=== PATIENT | male | born 1955 | race African-American/Black ===

== ENCOUNTER 2016-09-09 11:20 | Observation (INO) | payer OTHER ==
--- NOTE | ~2016-09-09 | OP ---
Record Of Operation [facility] [address] [place]. [address] NAME: SELENE KINSEY : 53 STATUS : ADM Rusty PAT#: [id number] AGE: 61 ADM/REG DATE : 09/09/16 MR#: [id number] REPORT SERV DATE: 09/10/16 DICTATED BY: GAGE HYMAN DATE: 09/10/16 REPORT STATUS : Draft TRANSCRIBED BY: MODL DATE: 09/10/16 DATE OF PROCEDURE: 09/10/2016 TITLE OF OPERATION: Cystourethroscopy with urethral dilation and Bowman catheter placement. PREOPERATIVE DIAGNOSES: 1. Gross hematuria. 2. History of prostate cancer. 3. Urinary retention. POSTOPERATIVE DIAGNOSES: 1. Urethral false passage. 2. Gross hematuria. 3. Urinary retention. 4. Urethral stricture. INDICATIONS: The patient is a 61-year-old male with history of low-risk prostate cancer. He underwent a radical retropubic prostatectomy at the [facility] in [place]. He has had issues with what was initially described as a bladder neck contracture, which has been managed with dilations and resections. He had presented last night with urinary retention. He did void in the ER with hematuria, therefore, taken to the OR today for interrogation and possible treatment. ANESTHESIA: General. COMPLICATIONS: None. IMPLANTS: 20-Beninese Bowman catheter. SPECIMENS: None. NARRATIVE: The patient was brought to the operating room, identified by his wristband. General anesthesia was induced and Ancef was given for preoperative antibiotics. He was placed in the dorsal position, prepped, and draped in sterile fashion. A cystoscope was placed into his urethra and . The external urinary sphincter was normal in appearance. Just proximal to the external urinary sphincter was a large urethral false passage to the left of midline. Proximal to this, there appeared to be a stricture in his urethra. I gently dilated the urethral stricture with the rigid cystoscope. I then encountered the bladder neck. The bladder neck was well healed. Bladder was entered, there was clear urine in the bladder. The bladder had no masses or other abnormalities. A 3.5 sensor wire was placed into the bladder and a 20-Beninese Councill tip catheter was placed over the wire into the bladder. The balloon was inflated with 10 mL of sterile water. The urine was clear. The patient was awoken from anesthesia and transferred to the recovery in stable condition. I will plan on leaving catheter for couple of days and then give him a voiding trial. We will also check a PSA as there appeared to be a decent amount of tissue in between his external urinary sphincter and his bladder. Record Of Operation [address] [place]. [address] NAME: SELENE KINSEY : 53 STATUS : ADM Rusty PAT#: [id number] AGE: 61 ADM/REG DATE : 09/09/16 MR#: [id number] REPORT SERV DATE: 09/10/16 DICTATED BY: GAGE HYMAN DATE: 09/10/16 REPORT STATUS : Draft TRANSCRIBED BY: KIRT DATE: 09/10/16 BRITTANI/KIRT Gage Hyman MD / [id number] CC: Gage Hyman MD
--- NOTE | ~2016-09-09 | HP ---
History And Physical [facility] [id number] [place]. [address] NAME: SELENE KINSEY : 53 STATUS : ADM Rusty PAT#: [id number] AGE: 61 ADM/REG DATE : 09/09/16 MR#: [id number] REPORT SERV DATE: 09/10/16 DICTATED BY: GAGE FRANCIS DATE: 09/09/16 REPORT STATUS : Draft TRANSCRIBED BY: MODL DATE: 09/09/16 DATE OF ADMISSION: 09/09/2016 CHIEF COMPLAINT: Hematuria and urinary retention. HISTORY OF PRESENT ILLNESS: The patient is a very pleasant 61-year-old male with history of adenocarcinoma of the prostate. Previously had an open radical retropubic prostatectomy done in spring of last year at the [facility] in [place]. Per his report, he had low risk disease. He has done okay postoperatively, and per his report, PSA had been undetectable. He has had difficulty with what sounds to be like a bladder neck contracture in the past and inability to urinate. He has had dilation and incision of this at the [facility] as well. He was in usual state of health until 2 days ago, when he developed inability to urinate. He presented to the ER and was discharged home after catheterization. He presents back today with hematuria, catheter was placed, and clear urine was drained. He did have bladder spasms with clot hematuria around the catheter. Catheter was removed, and a 3-way catheter was attempted to be placed on vessel. At this time, urology consultation was obtained. He had a CT scan without contrast that was performed. This showed no hydronephrosis. Bladder was mildly distended. He had some soft tissue densities in the area of the prostate as well as intact seminal vesicles. I was asked to consult regarding his gross hematuria and urinary retention. PAST MEDICAL HISTORY: Prostate cancer, colon cancer, and depression. SURGICAL HISTORY: Radical retropubic prostatectomy. SOCIAL HISTORY: He is accompanied by his family. Does not smoke, drink, or use illegal drugs. FAMILY HISTORY: Noncontributory. ALLERGIES: NO KNOWN DRUG ALLERGIES. MEDICATIONS: Reviewed and listed in the chart. REVIEW OF SYSTEMS: A 12-point review of systems was performed. Pertinent positives are listed in the HPI. PHYSICAL EXAMINATION: VITAL SIGNS: Temperature 97.9, blood pressure is 151/89, pulse is 86. He is saturating 95% on room air. He is in no acute distress. He appears stated age. HEENT: His head is normocephalic and atraumatic. LUNGS: Breathing is nonlabored. He is not in respiratory distress. Pulse is regular in rate and rhythm. ABDOMEN: Soft, nontender, nondistended. He has a well-healed radical retropubic prostatectomy scar. He has normal external genitalia. . There is no cyanosis or edema. History And Physical [address] [address] NAME: SELENE KINSEY : 53 STATUS : ADM Rusty PAT#: [id number] AGE: 61 ADM/REG DATE : 09/09/16 MR#: [id number] REPORT SERV DATE: 09/10/16 DICTATED BY: GAGE FRANCIS DATE: 09/09/16 REPORT STATUS : Draft TRANSCRIBED BY: MODL DATE: 09/09/16 NEURO: Alert and oriented x3. He has normal external genitalia. LABS: His white count is 5.8, hemoglobin 15.8, and creatinine is 0.6. Urinalysis is negative for infection. IMAGING: CT scan of abdomen and pelvis without contrast. Images were personally reviewed and interpreted by myself. No hydronephrosis or renal abnormalities. Bladder was mildly distended with air consistent with recent instrumentation. He does have some inflammation in his prostatic bed with intact seminal vesicles. ASSESSMENT AND PLAN: The patient is a 61-year-old male with urinary retention after a radical prostatectomy. He has a bladder neck contracture which has been managed intermittently at the [facility] in [place]. He is currently not in extremis and into his bladder. I am not going to catheterize him now. In spite of service in the hospital, I plan to keep cystoscopy and irrigation of his bladder neck in the morning. We tried to manage this here as this is closer to his home and so it will be easier for him to deal with. BRITTANI/KIRT Gage Francis MD / [id number] CC: Gage Francis MD
[2016-09-09 11:24] LABS: HEMATOCRIT 46.5 % (40.0-51.0); HEMOGLOBIN 15.8 g/dL (13.6-17.8); MEAN CORPUSCULAR HEMOGLOB 28.1 pg (26.0-34.0); MEAN CORPUSCULAR VOLUME 82.7 fL (80-100); MEAN PLATELET VOLUME 9.7 fL (9.2-13.0); PLATELET COUNT 210 10/3/uL (150-400); RBC DISTRIBUTION WIDTH 14.5 % (12.0-16.0); RED CELL COUNT 5.62 10/6/uL (4.7-6.1); WHITE BLOOD CELLS 5.8 10/3/uL (4.5-10.5)
[2016-09-09 11:48] LABS: A/G RATIO 0.9 (0.7-1.9); ALKALINE PHOSPHATASE 70 U/L (45-117); BUN (BLOOD UREA NITROGEN) 13 MG/DL (6-23); CALCIUM, SERUM 9.3 MG/DL (8.5-10.4); CHLORIDE, SERUM 106 MMOL/L (96-112); CO2 (CARBON DIOXIDE) 27 MMOL/L (24-34); CREATININE 1.66 MG/DL (0.70-1.30); GFR AFRICAN AMERICAN 50 ML/MIN (>=60); GFR NON AFRICAN AMERICAN 44 ML/MIN (>=60); GLOBULIN 4.3 G/DL (2.5-4.1); GLUCOSE, SERUM 124 MG/DL (60-99); POTASSIUM, SERUM 3.5 MMOL/L (3.5-5.3); SGOT(AST) 30 U/L (5-40); SGPT(ALT) 38 U/L (5-65); SODIUM, SERUM 143 MMOL/L (135-148); TOTAL BILIRUBIN 0.5 MG/DL (0-1.2); TOTAL PROTEIN 8.3 G/DL (6.0-8.5)
[2016-09-09 11:53] LABS: ASCORBIC ACID (UR NOT ORDER) NEG (NEG); BILIRUBIN, URINE NEGATIVE (NEG); ER URINALYSIS TAT 0 Hrs 11 Mins; KETONE, URINE NEGATIVE (NEG); LEUKOCYTE ESTERASE(NOT OR NEG (NEG); WBC (NOT ORDERED) (RFLEX) < 1 (0-5)
[2016-09-09 11:54] LABS: NITRITE (URINE) NEG (NEG)
[2016-09-09 12:03] LABS: BASOPHILS 2 %; BASOPHILS ABSOLUTE (CALC) 0.12 10/3/uL (0.0-0.16); LYMPHOCYTES 42 %; LYMPHOCYTES ABSOLUTE (CALC) 2.44 10/3/uL (0.67-4.30); MONOCYTES 8 %; MONOCYTES ABSOLUTE (CALC) 0.46 10/3/uL (0.21-1.20); NEUTROPHILS ABSOLUTE (CALC) 2.78 10/3/uL (2.02-8.40); PLATELET ESTIMATE ADQ (ADEQUATE); RBC MORPHOLOGY NORM (NORMAL); SEGMENTED NEUTROPHIL (0) 48 %; TOTAL NUCLEATED CELLS 100
[2016-09-09 16:03] LABS: PROTIME (NOT ORD) 12.6 SEC (12.0-14.5)
[2016-09-09 16:04] LABS: PARTIAL THROMBO TIME 30.3 SEC (22.5-37.2)
[2016-09-09] MEDS ORDERED: PRIN20 PO (18:44)
[2016-09-09] MEDS ORDERED: NORV10 PO (18:44)
[2016-09-10 11:18] LABS: BASOPHILS 0.4 %; BASOPHILS ABSOLUTE 0.03 10/3/uL (0.0-0.16); EOSINOPHILS 0.3 %; EOSINOPHILS ABSOLUTE 0.02 10/3/uL (0.0-0.53); HEMATOCRIT 42.3 % (40.0-51.0); HEMOGLOBIN 14.2 g/dL (13.6-17.8); IMMATURE GRANULOCYTES 0.1 %; IMMATURE GRANULOCYTES ABSOLUTE 0.01 10/3/uL (0.0-0.11); LYMPHOCYTES 16.2 %; MEAN CORPUS HGB CONC 33.6 g/dL (32.0-36.0); MEAN CORPUSCULAR HEMOGLOB 27.5 pg (26.0-34.0); MEAN CORPUSCULAR VOLUME 81.8 fL (80-100); MEAN PLATELET VOLUME 9.8 fL (9.2-13.0); MONOCYTES 2.1 %; MONOCYTES ABSOLUTE 0.14 10/3/uL (0.21-1.20); NEUTROPHILS 80.9 %; PLATELET COUNT 187 10/3/uL (150-400); RBC DISTRIBUTION WIDTH 14.6 % (12.0-16.0); RED CELL COUNT 5.17 10/6/uL (4.7-6.1); WHITE BLOOD CELLS 6.8 10/3/uL (4.5-10.5)
[2016-09-10 11:19] LABS: MANUAL DIFF NO %
[2016-09-10 11:21] LABS: INTERNATIONAL NORMAL RATI 1.1 UNITS (-); PROTIME (NOT ORD) 13.8 SEC (12.0-14.5)
[2016-09-10 11:22] LABS: PARTIAL THROMBO TIME 30.1 SEC (22.5-37.2)
[2016-09-10 11:26] LABS: BUN (BLOOD UREA NITROGEN) 10 MG/DL (6-23); CALCIUM, SERUM 8.7 MG/DL (8.5-10.4); CHLORIDE, SERUM 108 MMOL/L (96-112); CO2 (CARBON DIOXIDE) 26 MMOL/L (24-34); CREATININE 1.59 MG/DL (0.70-1.30); GFR AFRICAN AMERICAN 53 ML/MIN (>=60); GFR NON AFRICAN AMERICAN 46 ML/MIN (>=60); GLUCOSE, SERUM 133 MG/DL (60-99); POTASSIUM, SERUM 3.6 MMOL/L (3.5-5.3); SODIUM, SERUM 143 MMOL/L (135-148)
[2016-09-11 05:47] LABS: BASOPHILS 0.1 %; BASOPHILS ABSOLUTE 0.01 10/3/uL (0.0-0.16); EOSINOPHILS 0.7 %; EOSINOPHILS ABSOLUTE 0.06 10/3/uL (0.0-0.53); HEMATOCRIT 39.7 % (40.0-51.0); HEMOGLOBIN 13.4 g/dL (13.6-17.8); IMMATURE GRANULOCYTES 0.2 %; IMMATURE GRANULOCYTES ABSOLUTE 0.02 10/3/uL (0.0-0.11); LYMPHOCYTES 20.4 %; LYMPHOCYTES ABSOLUTE 1.74 10/3/uL (0.67-4.30); MEAN CORPUS HGB CONC 33.8 g/dL (32.0-36.0); MEAN CORPUSCULAR HEMOGLOB 28.3 pg (26.0-34.0); MEAN CORPUSCULAR VOLUME 83.8 fL (80-100); MONOCYTES 9.8 %; MONOCYTES ABSOLUTE 0.84 10/3/uL (0.21-1.20); NEUTROPHILS 68.8 %; NEUTROPHILS ABSOLUTE 5.88 10/3/uL (2.02-8.40); PLATELET COUNT 184 10/3/uL (150-400); RBC DISTRIBUTION WIDTH 14.6 % (12.0-16.0); RED CELL COUNT 4.74 10/6/uL (4.7-6.1); WHITE BLOOD CELLS 8.6 10/3/uL (4.5-10.5)
[2016-09-11 05:50] LABS: PARTIAL THROMBO TIME 30.1 SEC (22.5-37.2); PROTIME (NOT ORD) 13.5 SEC (12.0-14.5)
[2016-09-11 05:55] LABS: MANUAL DIFF NO %
[2016-09-11 05:56] LABS: CALCIUM, SERUM 9.1 MG/DL (8.5-10.4); CHLORIDE, SERUM 103 MMOL/L (96-112); CO2 (CARBON DIOXIDE) 26 MMOL/L (24-34); CREATININE 1.82 MG/DL (0.70-1.30); GFR AFRICAN AMERICAN 45 ML/MIN (>=60); GFR NON AFRICAN AMERICAN 39 ML/MIN (>=60); GLUCOSE, SERUM 126 MG/DL (60-99); POTASSIUM, SERUM 3.4 MMOL/L (3.5-5.3); SODIUM, SERUM 139 MMOL/L (135-148)
[2016-09-11 05:57] LABS: BUN (BLOOD UREA NITROGEN) 17 MG/DL (6-23)
[2016-09-11] MEDS ORDERED: DSS PO (08:42)
[2016-09-11] MEDS ORDERED: PCET PO (08:44)
[2016-09-11] MEDS ORDERED: BACDS PO (08:45)
== END 2016-09-11 11:21 | disposition home or self-care (01) ==
LOC: ER 11:20 → CDU1 18:07 → CDU2 19:47 → SDC/OF 09-10 06:47 → PACU 09-10 08:19 → 4SO 09-10 13:52
PROVIDERS: Hospitalist; Nurse Practitioner; Urology
PROC: 0T7D8ZZ Dilation of Urethra, Via Natural or Artificial Opening Endoscopic (ICD-10-PCS; principal; 2016-09-10 07:15)
DX: N35.9 Urethral stricture, unspecified (principal); N36.5 Urethral false passage; R33.9 Retention of urine, unspecified; R31.0 Gross hematuria; F32.9 Major depressive disorder, single episode, unspecified; I10 Essential (primary) hypertension; Z90.79 Acquired absence of other genital organ(s); Z88.8 Allergy status to other drugs, medicaments and biological substances; Z88.5 Allergy status to narcotic agent; Z79.899 Other long term (current) drug therapy
CPT/HCPCS: 71020; 74176; 80048; 80053; 81001; 84484; 85007; 85025; 85027; 85610; 85730; 93005; 96374; 96376; 99285; A9270-GY; G0378; J0690; J2250; J2270; J2405; J3010; Q9967

== ENCOUNTER 2016-12-12 07:54 | Day surgery (SDC) | payer OTHER ==
--- NOTE | ~2016-12-12 | EGD ---
EGD REPORT [facility] [address] [address] NAME: SELENE KINSEY : 53 STATUS : REG [facility]#: [id number] AGE: 61 ADM/REG DATE : 12/12/16 MR#: [id number] REPORT SERV DATE: 12/12/16 DICTATED BY: SHAE LOMELI DATE: 12/12/16 REPORT STATUS : Draft TRANSCRIBED BY: [employer] DATE: 12/12/16 [facility] Patient Name: Selene Kinsey Date of : 1955 Attending MD: SHAE LOMELI, Procedure Date No Time: 12/12/2016 Procedure: Colonoscopy Referring MD: JERROD LION Medicines: Monitored Anesthesia Care Complications: No immediate complications. Estimated blood loss: None. Procedure: Pre-Anesthesia Assessment: - ASA Grade Assessment: II - A patient with mild systemic disease. After I obtained informed consent, the scope was passed under direct vision. Throughout the procedure, the patient's blood pressure, pulse, and oxygen saturations were monitored continuously. The CF [id number] was introduced through the anus and advanced to the cecum, identified by appendiceal orifice and ileocecal valve. The colonoscopy was performed without difficulty. The patient tolerated the procedure well. The quality of the bowel preparation was good. Findings: The perianal and digital rectal examinations were normal. A sessile polyp was found in the ascending colon. The polyp was 2 mm in size. The polyp was removed with a cold biopsy forceps. Resection and retrieval were complete. Verification of patient identification for the specimen was done. Estimated blood loss was minimal. A sessile polyp was found in the transverse colon. The polyp was 5 mm in size. The polyp was removed with a cold snare. Resection and retrieval were complete. Verification of patient identification for the specimen was done. Estimated blood loss was minimal. A sessile polyp was found in the descending colon. The polyp was 2 mm in size. The polyp was removed with a cold biopsy forceps. Resection and retrieval were complete. Verification of patient identification for the specimen was done. Estimated blood loss was minimal. A pedunculated polyp was found in the sigmoid colon. The polyp was 10 mm in size. The polyp was removed with a hot snare. Resection and retrieval were complete. Verification of patient identification for the specimen was done. Estimated blood loss was minimal. A few small-mouthed diverticula were found in the sigmoid colon. The exam was otherwise without abnormality on direct and retroflexion views. EGD REPORT [address] [address] NAME: SELENE KINSEY : 53 STATUS : REG [facility] PAT#: [id number] AGE: 61 ADM/REG DATE : 12/12/16 MR#: [id number] REPORT SERV DATE: 12/12/16 DICTATED BY: SHAE LOMELI DATE: 12/12/16 REPORT STATUS : Draft TRANSCRIBED BY: [employer] DATE: 12/12/16 Impression: - One 2 mm polyp in the ascending colon. Resected and retrieved. - One 5 mm polyp in the transverse colon. Resected and retrieved. - One 2 mm polyp in the descending colon. Resected and retrieved. - One 10 mm polyp in the sigmoid colon. Resected and retrieved. - Diverticulosis in the sigmoid colon. - The examination was otherwise normal on direct and retroflexion views. Recommendation: - Patient has a contact number available for emergencies. The signs and symptoms of potential delayed complications were discussed with the patient. Return to normal activities tomorrow. Written discharge instructions were provided to the patient. - Return to previous diet. - Continue present medications. - Await pathology results. - Repeat colonoscopy for surveillance based on pathology results. Procedure Code(s): --- Professional --- 04840, Colonoscopy, flexible, proximal to splenic flexure; with removal of tumor(s), polyp(s), or other lesion(s) by snare technique 09267, 59, Colonoscopy, flexible, proximal to splenic flexure; with biopsy, single or multiple Diagnosis Code(s): --- Professional --- D12.5, Benign neoplasm of sigmoid colon D12.4, Benign neoplasm of descending colon D12.3, Benign neoplasm of transverse colon D12.2, Benign neoplasm of ascending colon K57.30, Diverticulosis of large intestine without perforation or abscess without bleeding CPT copyright 2013 [employer]. All rights reserved. The codes documented in this report are preliminary and upon zigzag tunnel elastic operator review may be revised to meet current compliance requirements. SHAE LOMELI, 12/12/2016 10:05 AM EGD REPORT [facility] [address] [place]. [address] NAME: SELENE KINSEY : 53 STATUS : REG [facility] PAT#: [id number] AGE: 61 ADM/REG DATE : 12/12/16 MR#: [id number] REPORT SERV DATE: 12/12/16 DICTATED BY: SHAE LOMELI DATE: 12/12/16 REPORT STATUS : Draft TRANSCRIBED BY: [employer] DATE: 12/12/16 Number of Addenda: 0 Note Initiated On: 12/12/2016 9:37 AM [facility] [place] [address]
[~2016-12-12 07:54] MED LIST: BACDS PO; DSS PO; NORV10 PO; PCET PO; PRIN20 PO
== END 2016-12-12 23:59 | disposition home or self-care (01) ==
LOC: DMU 07:54
PROVIDERS: Internal Medicine Gastroenterology
PROC: 0DBK8ZX Excision of Ascending Colon, Via Natural or Artificial Opening Endoscopic, Diagnostic (ICD-10-PCS; 2016-12-12)
PROC: 0DBN8ZX Excision of Sigmoid Colon, Via Natural or Artificial Opening Endoscopic, Diagnostic (ICD-10-PCS; 2016-12-12)
PROC: 0DBL8ZX Excision of Transverse Colon, Via Natural or Artificial Opening Endoscopic, Diagnostic (ICD-10-PCS; principal; 2016-12-12 09:00)
PROC: 0DBM8ZX Excision of Descending Colon, Via Natural or Artificial Opening Endoscopic, Diagnostic (ICD-10-PCS; 2016-12-12 09:00)
DX: D12.2 Benign neoplasm of ascending colon (principal); D12.3 Benign neoplasm of transverse colon; D12.4 Benign neoplasm of descending colon; D12.5 Benign neoplasm of sigmoid colon; K57.30 Diverticulosis of large intestine without perforation or abscess without bleeding; I10 Essential (primary) hypertension; F32.9 Major depressive disorder, single episode, unspecified; Z88.5 Allergy status to narcotic agent; Z88.1 Allergy status to other antibiotic agents; Z98.890 Other specified postprocedural states
CPT/HCPCS: 88305